=== PATIENT | female | born 1985 | race Caucasian/White ===

== ENCOUNTER 2019-09-12 12:03 | Inpatient (IN) | payer MEDICAID ==
[~2019-09-12] VITALS: Ht 142.2 cm; Wt 59.9 kg
[2019-09-12 12:23] VITALS: BP 104/61
[2019-09-12] MEDS ORDERED: SODIUM CHLORIDE FLUSH 10 ML SYR IVF STA (12:30)
--- NOTE | 2019-09-12 12:30 | NUR ---
PT ambulated to restroom at this time, VSS
[2019-09-12 13:11] LABS: BASOPHILS % (AUTO) 0.4 % (0.0-2.0); HEMATOCRIT 41.8 % (36-48); HEMOGLOBIN 13.9 g/dL (12.0-16.0); LYMPHOCYTES # (AUTO) 0.8 K/uL (2.5-16.5); LYMPHOCYTES % (AUTO) 10.5 % (20.5-51.1); MEAN CORPUSCULAR HEMOGLOBIN 30 pg (27-31); MEAN CORPUSCULAR HGB CONC 33 g/dL (33-37); MEAN CORPUSCULAR VOLUME 90.6 fL (80-94); MONOCYTES # (AUTO) 0.2 K/uL (0.8-1.0); NEUTROPHILS # (AUTO) 6.6 K/uL (1.8-7.7); NEUTROPHILS % (AUTO) 87.1 % (42.2-75.2); PLATELET COUNT (AUTO) 296 K/uL (140-450); RED BLOOD CELL COUNT(AUTO) 4.62 MIL/uL (4.20-5.40); RED CELL DISTRIBUTION WIDTH 13.3 % (11.6-13.7); WHITE BLOOD COUNT (AUTO) 7.6 K/uL (4.8-10.8)
[2019-09-12 13:14] LABS: ANION GAP 18.2 (8-16); CARBON DIOXIDE 20.6 mmol/L (21-32); CREATININE 0.7 mg/dL (0.6-1.3); POTASSIUM 3.8 mmol/L (3.5-5.1)
[2019-09-12 13:20] LABS: TOTAL BILIRUBIN 0.6 mg/dL (0.0-1.0)
--- NOTE | 2019-09-12 14:18 | NUR ---
TO ED 07
--- NOTE | 2019-09-12 14:49 | NUR ---
BIB C/O RUQ ABD PAIN STARTED 0200 THIS MORNING, N/V PRESENT. NO FEVER, NO DIARRHEA. URINE TEST DONE, PT + . NOTIFIED PT AND MD. DENIES ANY PMH NKA
[2019-09-12] MEDS ORDERED: ACETAMINOPHEN EXTRA STRENGTH 500 MG TAB PO ONE (15:00)
[2019-09-12] MEDS ORDERED: ONDANSETRON 4 MG/2 ML VIAL IVP ONE (15:00)
[2019-09-12] MEDS ORDERED: NACL 0.9% 1,000 ML IV ONE (15:00)
[2019-09-12 15:15] LABS: APPEARANCE,URINE HAZY (CLEAR); BILIRUBIN,URINE NEGATIVE (NEGATIVE); BLOOD, URINE NEGATIVE (NEGATIVE); COLOR,URINE YELLOW (YELLOW); LEUKOCYTE ESTERASE ,URINE NEGATIVE (NEGATIVE); NITRITE, URINE NEGATIVE (NEGATIVE); PH,URINE 8.5 (5.0-9.0); UGLUCOSE NEGATIVE (NEGATIVE)
--- NOTE | 2019-09-12 15:25 | NUR ---
ULTRASOUND AT BEDSIDE
[2019-09-12 15:40] LABS: RBC,URINE 0 /HPF (0-5); WBC,URINE 0-5 /HPF (0-5)
--- NOTE | 2019-09-12 15:52 | NUR ---
PTS PAIN HAS NOT IMPROVED. 06/26 RUQ PAIN. MD NOTIFIED
[2019-09-12] MEDS ORDERED: ONDANSETRON 4 MG/2 ML VIAL IM/IVP PRN (17:40)
[2019-09-12] MEDS ORDERED: MORPHINE SULFATE 2 MG/ML SYR IVP PRN (17:40)
[2019-09-12] MEDS ORDERED: HYDROcodone/APAP 5/325 MG 1 TAB TAB PO PRN (17:40)
--- NOTE | 2019-09-12 18:17 | NUR ---
Patient will be admitted to care of DR THEODORE. Admited to MED SURG. Will go to room 106B. Belongings list completed. Report to JASON.
[2019-09-12 18:25] LABS: PHOSPHORUS 1.4 mg/dL (2.5-4.9); PROTHROMBIN TIME 9.1 secs (10.8-13.4); THYROID STIMULATING HORMONE 1.68 uIU/mL (0.34-3.74)
[2019-09-12 18:30] VITALS: BP 117/69
--- NOTE | 2019-09-12 18:30 | NUR ---
RECEIVED REPORT FROM ED NURSE. PT RESTING IN BED WITH FAMILY AT BEDSIDE. RESPIRATIONS EVEN AND UNLABORED WITH NO SOB OR RESPIRATORY DISTRESS. ABLE TO MAKE NEEDS KNOWN. [place] SPEAKING ONLY. NO CONCERNS OR COMPLAINTS AT THIS TIME. SKIN WARM AND DRY TO TOUCH. IV SITE IN LEFT AC 20G AND IT'S CLEAN, DRY, AND INTACT. VITAL SIGNS GATHERED AND RESULTED: BP: 117/69, 98% SPO2 ON ROOM AIR, HR 75BPM, T 98.0, 0/10 PAIN. MRSA NARES SWAB COLLECTED AND SENT TO THE LAB. PT IS STABLE.
[2019-09-12] MEDS ORDERED: METOCLOPRAMIDE 10 MG/2 ML INJ VIAL IVP PRN (18:50)
--- NOTE | 2019-09-12 19:15 | NUR ---
ENDORSED TO NIGHTSHIFT NURSE AT BEDSIDE. PT LYING IN BED. ABLE TO MAKE NEEDS KNOWN. NO COMPLAINTS OR CONCERNS AT THIS TIME. SKIN WARM AND DRY TO TOUCH. SAFETY MEASURES IN PLACE. PT IS STABLE
--- NOTE | 2019-09-12 19:15 | NUR ---
RECIEVED PT AAOX4 , NID - O2 SAT -WNL , IV SITE INTACT AND PATENT . WITH BEARABLE ABDL. PAIN SHE SAID AT THIS TIME . NO VAG. SPOTTING NOTED AT THIS TIME . NPO - RE EMPHASIZED . PLAN OF CARE DISCUSSED AND VERBALIZED UNDERSTANDING- CALL LIGHT WITHIN REACH , WILL CONT. TO MONITOR.
[2019-09-12] MEDS: FAMOTIDINE 20 MG/2 ML VIAL IV SCH (20:10)
[2019-09-12] MEDS: NACL 0.9% 1,000 ML IV SCH (20:11)
[2019-09-12 20:23] LABS: BARBITURATE, URINE NEG. ng/ml (NEG <=200); BENZODIAZEPINE, URINE NEG. ng/mL (NEG <=200); CANNABINOID, URINE NEG. ng/mL (NEG <=50); COCAINE, URINE NEG. ng/mL (NEG <=300); OPIATE, URINE NEG. ng/mL (NEG <=2000); PHENCYCLIDINE SCREEN,URINE NEG. ng/mL (NEG <=25)
[2019-09-12] MEDS ORDERED: MAGNESIUM OXIDE 400 MG TAB PO SCH (21:00)
[2019-09-12] MEDS ORDERED: ACETAMINOPHEN 325 MG TAB PO PRN (21:16)
[2019-09-12] MEDS ORDERED: SODIUM PHOS / POTASSIUM PHOS 1 PKT PDR PO SCH (22:00)
--- NOTE | 2019-09-12 22:00 | NUR ---
MADE ROUNDS , IVF INFUSING WELL . NO S/SXS OF ACUTE DISTRESS NOTED AT THIS TIME . AT BEDSIDE. WILL CONT. TO MONITOR.
[2019-09-13] VITALS: BP 112/72
--- NOTE | 2019-09-13 | NUR ---
MADE ROUNDS , VERY LIGHT ABDL. PAIN - SHE SAID BEARABLE . WILL CONT. TO MONITOR. NO SPOTTING NOTED AT THIS TIME.
--- NOTE | 2019-09-13 02:00 | NUR ---
SLEEPING - CHEST RISE AND FALL EQUALLY - CALL LIGHT WITHIN REACH
--- NOTE | 2019-09-13 04:00 | NUR ---
MADE ROUNDS , NO S/SX OF ACUTE DISTRESS NOTED AT THIS TIME.
--- NOTE | 2019-09-13 06:00 | NUR ---
MADE ROUNDS . SLEEPING. CALL LIGHT WITHIN REACH.
[2019-09-13 06:07] LABS: T4 (THYROXINE) 8.5 ug/dL (4.5-12.0)
[2019-09-13 06:28] LABS: BASOPHILS % (AUTO) 0.5 % (0.0-2.0); EOSINOPHILS % (AUTO) 0.1 % (0.0-4.0); HEMATOCRIT 37.5 % (36-48); HEMOGLOBIN 12.4 g/dL (12.0-16.0); LYMPHOCYTES # (AUTO) 1.9 K/uL (2.5-16.5); LYMPHOCYTES % (AUTO) 19.1 % (20.5-51.1); MEAN CORPUSCULAR HEMOGLOBIN 30 pg (27-31); MEAN CORPUSCULAR HGB CONC 33 g/dL (33-37); MEAN CORPUSCULAR VOLUME 91.3 fL (80-94); MONOCYTES # (AUTO) 0.5 K/uL (0.8-1.0); MONOCYTES % (AUTO) 5.3 % (1.7-9.3); NEUTROPHILS # (AUTO) 7.5 K/uL (1.8-7.7); PLATELET COUNT (AUTO) 264 K/uL (140-450); RED CELL DISTRIBUTION WIDTH 13.3 % (11.6-13.7)
[2019-09-13 06:52] LABS: ANION GAP 11.9 (8-16); CARBON DIOXIDE 23.7 mmol/L (21-32); CREATININE 0.6 mg/dL (0.6-1.3); POTASSIUM 3.6 mmol/L (3.5-5.1)
[2019-09-13 07:01] LABS: MAGNESIUM 1.9 mg/dL (1.8-2.4); PHOSPHORUS 3.3 mg/dL (2.5-4.9)
--- NOTE | 2019-09-13 07:28 | NUR ---
ENDORSED TO AM SHIFT WITH STABLE CONDITION.
--- NOTE | 2019-09-13 07:30 | NUR ---
RECEIVED PATIENT FROM HEARING CONSULTANT NURSE. PATIENT IS CURRENTLY SLEEPING AT THIS TIME. NO SIGNS OF DISTRESS NOTED. RESPIRATIONS EVEN AND UNLABORED, ON ROOM AIR. CHEST RISE VISIBLE. ABDOMEN SOFT AND NONTENDER. SKIN INTACT, WARM AND DRY. IV ON THE LEFT AC G20 RUNNING NS AT 60 ML/HR. BED IN LOW POSITION. CALL LIGHT IS WITHIN REACH. WILL CONTINUE TO MONITOR
[2019-09-13 08:00] VITALS: BP 102/55
[2019-09-13 08:01] LABS: CHOL/HDL RATIO 3.2 (1-4.5)
[2019-09-13] MEDS: MULTIVIT/MIN/CA/FE/FA 1 TAB PO SCH (08:21)
[2019-09-13] MEDS: CALCIUM CARB/VIT-D 500 MG/200 IU 1 TAB PO SCH (08:21)
--- NOTE | 2019-09-13 08:22 | NUR ---
GIVEN MORNING MEDICATIONS PO. EXPLAINED TO PATIENT INDICATIONS. PATIENT VERBALIZED UNDERSTANDING. WILL CONTINUE TO MONITOR.
--- NOTE | 2019-09-13 08:56 | NUR ---
PT HAS BEEN SCREENED AND CATEGORIZED MODERATE NUTRITION RISK. PT WILL BE SEEN WITHIN 3-5 DAYS OF ADMISSION. 09/15/19-09/17/[address]
--- NOTE | 2019-09-13 09:15 | NUR ---
DR. MA SPOKE WITH THE PATIENT. IS AT BEDSIDE. [employer] SCOTTIE #[id number] WAS USED. PATIENT AND VERBALIZED UNDERSTANDING REGARDING WHAT DR. MA TOLD THEM.
[2019-09-13 09:21] LABS: BILIRUBIN,DIRECT 0.1 mg/dL (0.0-0.3); TOTAL BILIRUBIN 0.8 mg/dL (0.0-1.0)
--- NOTE | 2019-09-13 10:20 | NUR ---
PATIENT DENIES PAIN. WILL CONTINUE TO MONITOR
[2019-09-13] MEDS: NACL 0.9% 1,000 ML IV SCH (10:45)
--- NOTE | 2019-09-13 12:00 | NUR ---
PATIENT IS EATING LUNCH AT THIS TIME. NO SIGNS OF DISTRESS NOTED. WILL CONTINUE TO MONITOR
--- NOTE | 2019-09-13 13:30 | NUR ---
PATIENT IS SLEEPING AT THIS TIME. NO SIGNS OF DISTRESS NOTED. WILL CONTINUE TO MONITOR
--- NOTE | 2019-09-13 15:05 | NUR ---
PATIENT TALKING ON THE PHONE. REPORTED NO PAIN. BED IN LOW POSITION. CALL LIGHT IS WITHIN REACH. WILL CONTINUE TO MONITOR
--- NOTE | 2019-09-13 16:46 | NUR ---
PATIENT IS SLEEPING AT THIS TIME. CHRISTINA IS AT BEDSIDE. NO DISTRESS NOTED. RESPIRATIONS EVEN AND UNLABORED. WILL CONTINUE TO MONITOR
[2019-09-13] MEDS: FAMOTIDINE 20 MG/2 ML VIAL IV SCH (18:18)
--- NOTE | 2019-09-13 18:20 | NUR ---
GIVEN PEPCID VIA IVP. EXPLAINED TO PATIENT AND INDICATION AND SIDE EFFECTS. BOTH VERBALIZED UNDERSTANDING. PATIENT IS EATING DINNER AT THIS TIME. WILL CONTINUE TO MONITOR.
--- NOTE | 2019-09-13 19:13 | NUR ---
ENDORSED PATIENT TO PRODUCTION LINE NURSE. PATIENT IS IN STABLE CONDITION
--- NOTE | 2019-09-13 19:13 | NUR ---
RECIEVED PT AAOX4 , NID - NO S/SXS OF ACUTE DISTRESS NOTED AT THIS TIME , IV SITE INTACT AND PATENT , ON CARDIAC DIET - TOLERATED WELL . NO VAG. SPOTTING NOTED REPORTED BY AM SHIFT NOD . PLAN OF CARE DISCUSSED AND VERBALIZED UNDEWRSTANDING - AT BEDSIDE . CALL LIGHT WITHIN REACH . DENIES ANY PAIN AT THIS TIME . WILL CONT. TO MONITOR.
[2019-09-13 20:00] VITALS: BP 100/70
--- NOTE | 2019-09-13 22:00 | NUR ---
MADE ROUNDS , NO COMPLAIN MADE AT THIS TIME - CALL LIGHT WITHIN REACH
--- NOTE | 2019-09-14 | NUR ---
MADE ROUNDS , NO S/SXS OF ACUTE DISTRESS NOTED AT THIS TIME . CALL LIGHT WITHIN REACH.
[2019-09-14] MEDS: NACL 0.9% 1,000 ML IV SCH (01:52)
--- NOTE | 2019-09-14 02:00 | NUR ---
SLEEPING -CHEST RISE [place] FALL EQUALLY . CALL LIGHT WITHIN REACH.
--- NOTE | 2019-09-14 04:00 | NUR ---
MADE ROUNDS , NO S/SXS OF ACUTE DISTRESS NOTED AT THIS TIME . CALL LIGHT WITHIN REACH.
[2019-09-14 07:22] LABS: ANION GAP 10.8 (8-16); CARBON DIOXIDE 24.6 mmol/L (21-32); CREATININE 0.5 mg/dL (0.6-1.3); POTASSIUM 3.4 mmol/L (3.5-5.1)
--- NOTE | 2019-09-14 07:30 | NUR ---
Shift report received from shift supervisor rn nurse. Pt is in bed in stable condition. Call light in reach
[2019-09-14 07:32] LABS: MAGNESIUM 2.1 mg/dL (1.8-2.4); PHOSPHORUS 3.5 mg/dL (2.5-4.9)
[2019-09-14 07:33] LABS: BASOPHILS % (AUTO) 0.4 % (0.0-2.0); EOSINOPHILS # (AUTO) 0.1 K/uL (0-0.4); EOSINOPHILS % (AUTO) 1.9 % (0.0-4.0); HEMATOCRIT 36.3 % (36-48); LYMPHOCYTES # (AUTO) 2.3 K/uL (2.5-16.5); LYMPHOCYTES % (AUTO) 33.2 % (20.5-51.1); MEAN CORPUSCULAR HEMOGLOBIN 30 pg (27-31); MEAN CORPUSCULAR HGB CONC 33 g/dL (33-37); MEAN CORPUSCULAR VOLUME 91.2 fL (80-94); MONOCYTES # (AUTO) 0.4 K/uL (0.8-1.0); NEUTROPHILS # (AUTO) 4.1 K/uL (1.8-7.7); NEUTROPHILS % (AUTO) 58.5 % (42.2-75.2); PLATELET COUNT (AUTO) 255 K/uL (140-450); RED BLOOD CELL COUNT(AUTO) 3.98 MIL/uL (4.20-5.40); RED CELL DISTRIBUTION WIDTH 13.7 % (11.6-13.7)
[2019-09-14 08:00] VITALS: BP 98/54
--- NOTE | 2019-09-14 09:30 | NUR ---
PT IS RESTING IN BED INSTABLE CONDITION. NO COMPLAINS OF PAIN. CALL LIGHT IN REACH
[2019-09-14] MEDS ORDERED: POTASSIUM CHLORIDE 10 MEQ TABER PO SCH (09:35)
[2019-09-14] MEDS ORDERED: PREN-380 PO (09:36)
[2019-09-14] MEDS: CALCIUM CARB/VIT-D 500 MG/200 IU 1 TAB PO SCH (09:49)
[2019-09-14] MEDS: MULTIVIT/MIN/CA/FE/FA 1 TAB PO SCH (09:50)
--- NOTE | 2019-09-14 11:33 | NUR ---
PT WAS DISCHARGED TODAY. DISCHARGE INSTRUCTIONS GIVE TO PATIENT. PT WILL FOLLOW UP WITH OBGYN WITH 3-5 BUSINESS DAYS. SKIN INTACT. NO COMPLAINS OF PAIN. IV LINE REMOVED. NO ACTIVE BLEEDING NOTED. PT WALKED WITH A STEADY GAIT UPON DISCHARGE. PT WAS ALERT AND INSTABLE CONDITION UPON DISCHARGE. VITAL SIGNS WITHIN NORMAL RANGE. PT'S BELONGINGS WITH PATIENT. FAMILY ACCOMPANIED PT UPON DISCHARGE. ID BAND REMOVED FROM PATIENT.
--- NOTE | 2019-09-14 14:20 | NUR ---
CM ATTEMPTED TO CONDUCT SCREEN, PATIENT IS DC.
[2019-09-15] MEDS ORDERED: OMEP20TC12 PO (09:14)
[2019-09-18] MEDS ORDERED: PREN-380 PO (14:44)
== END 2019-09-14 11:30 | disposition home or self-care (01) | DRG 566 ==
LOC: MED 12:03 → MTU 17:39
PROVIDERS: ADMIT General Practice; ATTEND General Practice
DX: O26.611 Liver and biliary tract disorders in pregnancy, first trimester (principal); K83.1 Obstruction of bile duct; E83.39 Other disorders of phosphorus metabolism; E83.51 Hypocalcemia; O99.611 Diseases of the digestive system complicating pregnancy, first trimester; K21.9 Gastro-esophageal reflux disease without esophagitis; M94.0 Chondrocostal junction syndrome [Tietze]; M54.5 Low back pain; O99.281 Endocrine, nutritional and metabolic diseases complicating pregnancy, first trimester; O26.891 Other specified pregnancy related conditions, first trimester; Z3A.01 Less than 8 weeks gestation of pregnancy
CPT/HCPCS: 36415; 76700; 76817; 80048; 80053; 80076; 80305; 81001; 82150; 83036; 83690; 83735; 83880; 84100; 84436; 84443; 84484; 84702; 85025; 85610; 85730; 86900; 86901; 87081; 93005; 96361; 96375; 99285; J2405; J3490; J7030; Q0092